=== PATIENT | male | born 1955 | race Caucasian/White ===

== ENCOUNTER 2021-02-11 19:09 | Emergency (ER) | payer MEDICARE, OTHER ==
[2021-02-11 19:21] VITALS: BP 167/85
== END 2021-02-11 20:02 | disposition left against medical advice (07) ==
LOC: ED 19:09
DX: Z53.21 Procedure and treatment not carried out due to patient leaving prior to being seen by health care provider (principal)

== ENCOUNTER 2021-02-13 07:27 | Emergency (ER) | payer MEDICARE | END 2021-02-13 07:37 | disposition left against medical advice (07) | LOC: ED 07:27 | DX: Z53.21 Procedure and treatment not carried out due to patient leaving prior to being seen by health care provider (principal) ==